=== PATIENT | female | born 1975 | race Caucasian/White ===

== ENCOUNTER 2018-09-02 11:13 | Emergency (ER) | payer BC ==
[2018-09-02 11:37] VITALS: BP 128/89
--- NOTE | 2018-09-02 12:00 | UC ---
Skin Complaint HPI - HPI Summary HPI Summary: 43 yo female presents with rash to left thigh. She tells me that on 08/31 she felt a sharp and stinging pain to her left anterior thigh. She looked down and noticed 2 small bumps with some surrounding redness. Since that time the redness has spread and the red bumps have been blistering and becoming more numerous. Area is very tender to touch. She thinks a bug may have bit her, but does not recall seeing an insect specifically. She denies fever, chills, or recent illness. - History of Current Complaint Chief Complaint: UCSkin Time Seen by Provider: 09/02/18 12:00 Stated Complaint: BUG BITE Hx Obtained From: Patient Hx Last Menstrual Period: 3 weeks ago Onset/Duration: Sudden Onset Onset Severity: Mild Current Severity: Moderate Pain Intensity: 4 Pain Scale Used: 0-10 Numeric - Allergy/Home Medications Allergies/Adverse Reactions: Allergies Allergy/AdvReac Type Severity Reaction Status Date / Time No Known Allergies Allergy Verified 09/02/18 11:37 Home Medications: Home Medications Ibuprofen 400 mg PO ONCE PRN 09/02/18 [History Confirmed 09/02/18] PMH/Surg Hx/FS Hx/Imm Hx - Additional Past Medical History Additional PMH: None - Surgical History Surgical History: None - Family History Known Family History: Positive: None - Social History Occupation: Employed Full-time Lives: With Family Alcohol Use: Occasionally Substance Use Type: None Smoking Status (MU): Never Smoked Tobacco - Immunization History Most Recent Influenza Vaccination: 11/02 Most Recent Tetanus Shot: 09/24/13 Most Recent Pneumonia Vaccination: none Review of Systems All Other Systems Reviewed And Are Negative: Yes Constitutional: Positive: Negative Skin: Positive: Rash Respiratory: Positive: Negative Cardiovascular: Positive: Negative Gastrointestinal: Positive: Negative Neurological: Positive: Negative Psychological: Positive: Negative Physical Exam - Summary Physical Exam Summary: GENERAL: NAD. WDWN. No pain distress. SKIN: LEFT ANTERIOR THIGH: Approx the dermatome of L2/L3 there is a cluster of grouped vesicles on erythematous bases that area TTP with surrounding 2.0cm of mild erythema and warmth. No open sores, bleeding, drainage, or streaking. No abscess appreciated. NECK: Supple. Nontender. No lymphadenopathy. CHEST: No accessory muscle use. Breathing comfortably and in no distress. CV: Pulses intact. Cap refill <2seconds NEURO: Alert. PSYCH: Age appropriate behavior. Triage Information Reviewed: Yes Vital Signs: Initial Vital Signs Temp 98.4 F 09/02/18 11:34 Pulse 75 09/02/18 11:34 Resp 18 09/02/18 11:34 BP 128/89 09/02/18 11:34 Pulse Ox 99 09/02/18 11:34 Vital Signs Reviewed: Yes Course/Dx - Course Course Of Treatment: Suspect shingles to left dermatome L2/L3. Advised to keep the area covered at all times except to bathe. Will rx for valacyclovir and keflex as there appears to be an underlying mild cellulitis. - Diagnoses Provider Diagnosis: Shingles Discharge - Sign-Out/Discharge Documenting (check all that apply): Patient Departure All imaging exams completed and their final reports reviewed: No Studies - Discharge Plan Condition: Stable Disposition: HOME Prescriptions: Cephalexin CAP* [Keflex CAP*] 500 mg PO BID #14 cap Valacyclovir HCl [Valacyclovir] 1,000 mg PO TID #21 tablet Patient Education Materials: Shingles (ED) Referrals: Anita Elliott MD [Primary Care Provider] - Additional Instructions: If you develop a fever, shortness of breath, chest pain, new or worsening symptoms - please call your PCP or go to the ED immediately. 1) Keep the area covered as much as possible and change the dressing daily until the lesions have crusted and are healing (likely 10-14 days in total) 2) May continue taking ibuprofen as directed for discomfort - Billing Disposition and Condition Condition: STABLE Disposition: Home
== END 2018-09-02 12:29 | disposition home or self-care (01) ==
LOC: UCEAST 11:13
DX: B02.9 Zoster without complications (principal)
CPT/HCPCS: 99212; G0463

== ENCOUNTER 2018-09-15 09:52 | Emergency (ER) | payer BC ==
[2018-09-15 11:03] VITALS: BP 128/81
--- NOTE | 2018-09-15 11:57 | UC ---
Skin Complaint HPI - HPI Summary HPI Summary: patient was treated for shingle son anterior L thigh last week with valcyclovir and Keflex. blisters resolved but redness is growing bigger around dried lesions and today feels warm to touch. pat also noticed round red rash on upper posterior shoulder, mildly itchy , no known bug bite. also reports feeling very fatigued over past 2-3 days. no known tick bites but does go outside often. - History of Current Complaint Chief Complaint: UCRash Time Seen by Provider: 09/15/18 11:37 Stated Complaint: RASH Hx Obtained From: Patient Hx Last Menstrual Period: 09/03/18 ?: No Onset/Duration: Sudden Onset Onset Severity: Mild Current Severity: Mild Pain Intensity: 1 Location: Other - Left shoulder Aggravating Factor(s): Nothing Alleviating Factor(s): Nothing Associated Signs & Symptoms: Negative: Fever, Chills, Joint Swelling - Allergy/Home Medications Allergies/Adverse Reactions: Allergies Allergy/AdvReac Type Severity Reaction Status Date / Time No Known Allergies Allergy Verified 09/15/18 10:56 PMH/Surg Hx/FS Hx/Imm Hx Previously Healthy: Yes - Surgical History Surgical History: None - Family History Known Family History: Positive: None - Social History Occupation: Employed Full-time Lives: With Family Alcohol Use: None Substance Use Type: None Smoking Status (MU): Never Smoked Tobacco - Immunization History Most Recent Influenza Vaccination: 11/02 Most Recent Tetanus Shot: 09/24/13 Most Recent Pneumonia Vaccination: none Review of Systems All Other Systems Reviewed And Are Negative: Yes Constitutional: Positive: Fatigue Skin: Positive: Rash Respiratory: Positive: Negative Cardiovascular: Positive: Negative Musculoskeletal: Positive: Negative. Negative: Arthralgia, Decreased ROM Neurological: Positive: Negative. Negative: Headache Psychological: Positive: Negative Is Patient Immunocompromised?: No Physical Exam Triage Information Reviewed: Yes Appearance: Well-Appearing, No Pain Distress, Well-Nourished Vital Signs: Initial Vital Signs Temp 98.7 F 09/15/18 10:57 Pulse 80 09/15/18 10:57 Resp 16 09/15/18 10:57 BP 128/81 09/15/18 10:57 Pulse Ox 98 09/15/18 10:57 Vital Signs Reviewed: Yes Respiratory Exam: Normal Respiratory: Positive: Lungs clear Cardiovascular Exam: Normal Cardiovascular: Positive: RRR Musculoskeletal Exam: Normal Musculoskeletal: Positive: Strength Intact, ROM Intact Neurological Exam: Normal Neurological: Positive: Alert Psychological Exam: Normal Skin Exam: Other - L anterior thigh: scabbed central area with surrounding erythema,mild swellingand warm to touch. no drainage. L posterior shoulder: 4cm circular bullseye rash. Course/Dx - Differential Diagnoses - Skin Complaint Differential Diagnoses: Abscess, Cellulitis, MRSA, Tick Born Illness - Diagnoses Provider Diagnosis: Cellulitis, Rash Discharge - Sign-Out/Discharge Documenting (check all that apply): Patient Departure All imaging exams completed and their final reports reviewed: No Studies - Discharge Plan Condition: Good Disposition: HOME Prescriptions: Clindamycin Cap(NF) [Clindamycin Cap 300 mg Cap(NF)] 300 mg PO TID #21 cap Patient Education Materials: Cellulitis (ED) Referrals: Anita Elliott MD [Primary Care Provider] - 3 Days (for recheck rash ) Additional Instructions: start clindamycin antibiotic for leg infection Make sure to follow-up with Lyme results in 2-3 days - Billing Disposition and Condition Condition: GOOD Disposition: Home
--- NOTE | 2018-09-17 07:42 | UC ---
- Progress Note Progress Note: jamison screen positive - pending confirmation change to doxy, d/c clindamycin please let pt know confirmation may take 1 week schedule f/u with pcp 09/17/18 7:42am Course/Dx - Diagnoses Provider Diagnoses: Cellulitis, Rash Discharge - Sign-Out/Discharge Documenting (check all that apply): Post-Discharge Follow Up All imaging exams completed and their final reports reviewed: No Studies - Discharge Plan Condition: Good Disposition: HOME Prescriptions: Clindamycin Cap(NF) [Clindamycin Cap 300 mg Cap(NF)] 300 mg PO TID #21 cap DOXYcycline CAP(*) [DOXYcycline 100MG CAP(*)] 100 mg PO BID #28 cap Patient Education Materials: Cellulitis (ED) Referrals: Anita Elliott MD [Primary Care Provider] - 3 Days (for recheck rash ) Additional Instructions: start clindamycin antibiotic for leg infection Make sure to follow-up with Lyme results in 2-3 days - Billing Disposition and Condition Condition: GOOD Disposition: Home
== END 2018-09-15 12:12 | disposition home or self-care (01) ==
LOC: UCEAST 09:52
DX: L03.116 Cellulitis of left lower limb (principal)
CPT/HCPCS: 36415; 86617; 86618; 99212; G0463